=== PATIENT | female | born 2000 | race Caucasian/White ===

== ENCOUNTER 2025-04-19 19:18 | Inpatient (IN) | payer OTHER ==
[~2025-04-19] VITALS: Ht 172.7 cm; Wt 103.0 kg
[2025-04-19] MEDS: HALOPERIDOL LACTATE 5MG/ML VIAL IM ONE (20:04)
[2025-04-19] MEDS: DIPHENHYDRAMINE 50MG/ML VIAL IM ONE (20:04)
[2025-04-19] MEDS: MIDAZOLAM HCL 2 MG/2 ML VIAL IM ONE ×2 (20:13→21:35)
[2025-04-19 20:36] LABS: BASOPHILS % 0.3 % (0.0-2.0); EOSINOPHILS % 0.1 % (0.0-5.0); HEMATOCRIT. 40.7 % (36.0-48.0); HEMOGLOBIN. 13.5 g/dL (12.0-16.0); LYMPHOCYTES % 22.3 % (20.0-50.0); MEAN PLATELET VOLUME 8.6 fl (7.4-10.4); MONOCYTES % 5.2 % (2.0-8.0); NEUTROPHILS % 72.1 % (40.0-76.0); PLATELET 265 x1000/uL (130-400); RED BLOOD CELL COUNT 4.61 mill/uL (4.2-5.4); RED CELL DISTRIBUTION WIDTH 12.6 % (11.6-14.6)
[2025-04-19 20:49] LABS: HCG SCREEN NEGATIVE
[2025-04-19 20:50] LABS: CREATININE 1.0 mg/dL (0.6-1.0)
[2025-04-19 20:51] LABS: ETHANOL BLOOD 235 mg/dL (<10); PROTEIN TOTAL 7.3 g/dL (6.0-8.3); UREA NITROGEN BLOOD 10 mg/dL (9-23)
[2025-04-19 20:52] LABS: ASPARTATE AMINOTRANSFERASE 26 IU/L (<34)
[2025-04-19 20:53] LABS: BILIRUBIN DIRECT 0.1 mg/dL (<=3.0); BILIRUBIN TOTAL 0.3 mg/dL (0.1-1.0)
[2025-04-19] MEDS: FOLIC ACID 1 MG, THIAMINE HCL 100 MG, MVI, ADULT NO.1 10 ML in DEXTROSE 5% WATER 1,000 ML IV ONE (21:29)
[2025-04-19] MEDS: OLANZAPINE 10 MG/VIAL IM ONE (21:29)
[2025-04-19 22:00] VITALS: O2SAT 100
[2025-04-19] MEDS ORDERED: KETAMINE HCL 50 MG/ML 10ML IM ONE (22:00)
[2025-04-20] VITALS: BP 93/56; PULSE 108; RESP 20; TEMP 36.2; O2SAT 99
[2025-04-20 00:17] VITALS: BP 93/56; PULSE 108; RESP 20; TEMP 36.2512
[2025-04-20] MEDS ORDERED: INFLUENZA VACCINE 05/PF 0.5 ML SYRINGE IM ONE (00:30)
[2025-04-20] MEDS ORDERED: LACTATED RINGERS 1,000 ML IV ONE (01:00)
[2025-04-20] MEDS: MAGNESIUM 2 G PREMIX 50 ML IV NR (01:12)
[2025-04-20] MEDS ORDERED: DOCUSATE SODIUM 100MG CAPSULE PO PRN (01:15)
[2025-04-20] MEDS ORDERED: CLONIDINE 0.1MG TABLET PO PRN (01:15)
[2025-04-20] MEDS ORDERED: IPRATROPIUM/ALBUTEROL 0.5-3(2.5)MG/3ML NEB HHN PRN (01:15)
[2025-04-20] MEDS ORDERED: MAGNESIUM/ALUMINUM HYDROXIDE/SIMETHICONE 30ML UDC PO PRN (01:15)
[2025-04-20] MEDS ORDERED: ONDANSETRON HCL 4MG/2ML INJ IV PRN (01:15)
[2025-04-20] MEDS ORDERED: GUAIFENESIN 200MG/10ML SUGAR FREE UDC PO PRN (01:15)
[2025-04-20] MEDS ORDERED: ACETAMINOPHEN 325MG TABLET PO PRN ×2 (01:15)
[2025-04-20] MEDS: LORAZEPAM 2MG/ML UD SYRINGE IM NR (01:29)
[2025-04-20] MEDS ORDERED: MVI, ADULT NO.1 10 ML, FOLIC ACID 1 MG, THIAMINE HCL 100 MG in SODIUM CHLORIDE 0.9% 1,0... IV SCH (02:00)
[2025-04-20] MEDS: KCL 20MEQ/100ML PREMIX 100 ML IV SCH (03:17)
[2025-04-20 04:00] VITALS: BP 125/79; PULSE 108; RESP 18; TEMP 36.5; O2SAT 97
[2025-04-20 07:09] LABS: PHOSPHORUS 2.9 mg/dL (2.5-4.9); TROPONIN I HIGH SENSITIVITY 18 ng/L (3.0-34)
[2025-04-20] MEDS ORDERED: LORAZEPAM 2MG/ML UD SYRINGE IV PRN ×2 (08:00)
[2025-04-20] MEDS: CHLORDIAZEPOXIDE 25MG CAPSULE PO SCH (08:00)
[2025-04-20] MEDS: LORAZEPAM 0.5MG TABLET PO NR (08:19)
[2025-04-20] MEDS: THIAMINE HCL 100MG TABLET PO SCH (08:19)
[2025-04-20] MEDS: FOLIC ACID 1MG TABLET PO SCH (08:19)
[2025-04-20] MEDS: MULTIVITAMINS,THER W-MINERALS TABLET PO SCH (08:19)
[2025-04-20] MEDS: PANTOPRAZOLE SODIUM 40 MG/VIAL IV SCH (08:42)
[2025-04-20] MEDS: ENOXAPARIN 30MG/0.3ML SYR SUBCUT SCH (08:42)
== END 2025-04-20 08:54 | disposition left against medical advice (07) | DRG 92 ==
LOC: ER 19:18 → 6WST 23:11 → EDBEDREQ 23:16 → ENRESERV 23:27 → 6WST 04-20 00:18
PROVIDERS: ADMIT Internal Medicine; ATTEND Internal Medicine
DX: G92.8 Other toxic encephalopathy (principal); E87.20 Acidosis, unspecified; F10.129 Alcohol abuse with intoxication, unspecified; E66.9 Obesity, unspecified; E87.6 Hypokalemia; Z20.822 Contact with and (suspected) exposure to COVID-19; Y90.7 Blood alcohol level of 200-239 mg/100 ml; D72.829 Elevated white blood cell count, unspecified; Z53.29 Procedure and treatment not carried out because of patient's decision for other reasons; R73.9 Hyperglycemia, unspecified; E83.42 Hypomagnesemia; Z68.34 Body mass index [BMI] 34.0-34.9, adult
CPT/HCPCS: 36415; 80048; 80076; 80307; 80320; 80329; 82550; 83036; 83605; 83735; 84100; 84145; 84484; 84703; 85025; 87426; 93005; 96365; 96372; 99291; J1200; J1630; J1650; J2060; J2250; J2470; J3411; J3475; J3480; J3490; J7030; J7070; G0480